=== PATIENT | female | born 1940 | race Caucasian/White ===

== ENCOUNTER 2017-12-07 23:08 | Emergency (ER) | payer OTHER ==
[2017-12-07 23:14] VITALS: BP 127/80; PULSE 71; TEMP 98.2; BMI 29.5
--- NOTE | 2017-12-08 00:39 | PDOC ---
History of Present Illness - General History Source: Patient, Family Exam Limitations: No Limitations - History of Present Illness Initial Comments: 12/08/17 01:10 The patient is a 77 year old female, with a significant past medical history of HTN and arthritis, who presents to the emergency department with, 2 days of sudden onset right sided neck and back pain. She describes her pain as a spasm. She reports she never had a previous episode of this type of pain. She denies recent fevers, chills, headache or dizziness. She denies recent nausea, vomit, diarrhea or constipation. She denies recent dysuria, frequency, urgency or hematuria. She denies recent chest pain or shortness of breath. Allergies: NKA Past surgical history: None reported. Social history: Nonsmoker. Denies EtOH use and recreational drug use. Primary Care Physician: Dr. Hurt <Hernandez Cotton - Last Filed: 12/08/17 01:10> <Tristin Braun - Last Filed: 12/08/17 01:53> - General Chief Complaint: Pain, Acute Stated Complaint: PAIN Time Seen by Provider: 12/08/17 00:38 Past History <Hernandez Cotton - Last Filed: 12/08/17 01:10> - Suicide/Smoking/Psychosocial Hx Smoking History: Never smoked Have you smoked in the past 12 months: No Information on smoking cessation initiated: No Hx Alcohol Use: No Drug/Substance Use Hx: No <Tristin Braun - Last Filed: 12/08/17 01:53> - Past Medical History Allergies/Adverse Reactions: Allergies Allergy/AdvReac Type Severity Reaction Status Date / Time No Known Allergies Allergy Verified 12/07/17 23:13 Review of Systems - Review of Systems Able to Perform ROS?: Yes Comments:: 12/08/17 01:10 CONSTITUTIONAL: No fever, no chills, no fatigue EYES: No visual changes ENT: No ear pain, no sore throat CARDIOVASCULAR: No chest pain, no palpitations RESPIRATORY: No cough, no SOB GI: No abdominal pain, no nausea, no vomiting, no constipation, no diarrhea GENITOURINARY: No dysuria, no frequency, no hematuria +MUSKULOSKELETAL: Right sided neck and back pain. SKIN: No rash NEURO: No headache All Other Systems: Reviewed and Negative <Hernandez Cotton - Last Filed: 12/08/17 01:10> *Physical Exam - Vital Signs Last Vital Signs Temp Pulse Resp BP Pulse Ox 98.2 F 71 16 127/80 100 12/07/17 23:11 12/07/17 23:11 12/07/17 23:11 12/07/17 23:11 12/07/17 23:11 - Physical Exam Comments: 12/08/17 01:11 CONSTITUTIONAL: Well-appearing; well-nourished; in no apparent distress HEAD: Normocephalic; atraumatic EYES: PERRL; EOM intact ENMT: External appears normal; normal oropharynx NECK: Supple; no cervical lymphadenopathy CARD: Normal S1, S2; no murmurs, rubs, or gallops RESP: Normal chest excursion with respiration; breath sounds clear and equal bilaterally; no wheezes, rhonchi, or rales ABD: Soft, non-distended; non-tender; no palpable organomegaly, no palpable hernias +MUSCULOSKELETAL: Right sided trapezius and parasternocleidomastoid tenderness to palpation. EXT: Normal ROM in all four extremities; distal pulses intact SKIN: Warm, dry, no rash NEURO: No focal neurological deficiencies. <Hernandez Cotton - Last Filed: 12/08/17 01:10> - Vital Signs Last Vital Signs Temp Pulse Resp BP Pulse Ox 98.2 F 71 16 127/80 100 12/07/17 23:11 12/07/17 23:11 12/07/17 23:11 12/07/17 23:11 12/07/17 23:11 <Tristin Braun - Last Filed: 12/08/17 01:53> Medical Decision Making - Medical Decision Making 12/08/17 01:53 Patient 77-year-old female with history of hypertension, osteoarthritis who presents with signs and symptoms of acute torticollis. I do not suspect ACS or cord compression or cervical radiculopathy at this time. We will administer NSAIDs. Will discharge with outpatient follow-up with PMD. <Tristin Braun - Last Filed: 12/08/17 01:53> *DC/Admit/Observation/Transfer - Attestations Scribe Attestion: 12/08/17 01:11 Documentation prepared by Hernandez Cotton, acting as medical claims assistant for Tristin Braun MD. <Hernandez Cotton - Last Filed: 12/08/17 01:10> - Attestations Physician Attestion: 12/08/17 01:51 The documentation was prepared by the scribe under my direct supervision. I have reviewed the documentation which correctly represents the findings, medical decision-making and critical action taken by me. <Tristin Braun - Last Filed: 12/08/17 01:53> Diagnosis at time of Disposition: Acquired torticollis - Discharge Dispostion Disposition: HOME Condition at time of disposition: Stable - Referrals Referrals: Andrea Hurt MD [Primary Care Provider] - - Patient Instructions Printed Discharge Instructions: DI for Neck Pain Print Language: BURUNDIAN - Post Discharge Activity
== END 2017-12-08 02:00 | disposition home or self-care (01) ==
LOC: JER 23:08
DX: M43.6 Torticollis (principal); M12.9 Arthropathy, unspecified
CPT/HCPCS: 99281-25

== ENCOUNTER 2019-01-10 11:17 | Inpatient (IN) | payer OTHER | END 2019-01-11 20:50 | disposition home or self-care (01) | LOC: JER 11:17 → JERBED 14:23 → J4W 18:28 ==